=== PATIENT | male | born 1985 | race Caucasian/White ===

== ENCOUNTER 2019-10-09 10:48 | Emergency (ER) | payer OTHER, SELFPAY ==
[2019-10-09 10:49] VITALS: BP 152/92; PULSE 73; RESP 16; TEMP 36.1; O2SAT 98; BMI 32.9
--- NOTE | 2019-10-09 11:08 | RAD_ITS ---
STUDY: X-RAY - RIGHT KNEE REASON FOR EXAM: Male, 34 years old. INJURY LAST NIGHT- BENT DOWN AND TWISTED- FELT A POP AND DIFFICULTY WEIGHT BEARING, HX MENISCUS AND ACL REPAIR IN PAST TECHNIQUE: 4 view(s) of the knee. COMPARISON: None. FINDINGS: There is evidence of prior anterior cruciate ligament repair with postoperative changes. Normal visualized distal femur. Normal visualized proximal tibia and fibula. Normal proximal tibiofibular articulation. Normal medial femorotibial compartment. Normal lateral femorotibial compartment. Normal patellofemoral articulation. Small joint effusion. RAD/Knee 4 or More Views IMPRESSION: Small joint effusion. Evidence of prior anterior cruciate ligament repair. Electronically Signed: Roland Resendiz, at 12:17 EST , Service support ,
--- NOTE | 2019-10-09 11:19 | ED.DCSUM_ITS ---
History of Present Illness Chief Complaint: Lower Extremity Injury Detail of Chief Complaint: Right knee pain Informant: Patient Onset: Yesterday Current Severity: Moderate Maximum Severity: Moderate Narrative: Patient presents with pain to the medial portion of the right knee. He has a history of ACL meniscus repair when he was in high school. Last evening he was at a muslim event and doing lunges. He states his right knee was flexed and weight was coming down onto his right knee when it buckled and folded medially. He now has medial right knee pain. He is using crutches to get around. He did take Tylenol this morning. Patient is currently active in the in between stations. He called the nurse this morning who told him to go to urgent care. Urgent care did not have any ability to do imaging and he was sent to the hospital. - Past Medical History (1) H/O right knee surgery Status: Resolved Past Medical History - Allergies and Home Meds Allergies/Adverse Reactions: Allergies No Known Allergies Allergy (Verified 10/09/19 10:52) Prior records reviewed: Yes Lives: Spouse/ Significant Other Review of Systems General: Denies: Chills, Fever Eyes: Denies: Visual changes - bilaterally ENT: Denies: Bilateral ear pain Cardiovascular: Denies: Chest pain Respiratory: Denies: Dyspnea, Cough Gastrointestinal: Denies: Abdominal pain, Nausea, Vomiting, Diarrhea Musculoskeletal: Reports: Extremity Pain Skin: Denies: Rash Neurological: Reports: Parasthesia Hematologic: Denies: Easy bruising Allergy: Denies: Uticaria Physical Exam Vital Signs/Narrative: Vital Signs Temp Pulse Resp BP Pulse Ox 10/09/19 10:49 97 F L 73 16 152/92 H 98 Inital Vital Signs reviewed: Yes General: Well nourished, Well developed Head: Normocephalic ENT: Moist mucous membranes Neck: Supple Cardiovascular: Regular rate, Regular rhythm Respiratory: No distress, CTA bilaterally Abdomen: Soft, Nontender Extremities: - - Tenderness palpation along the medial right knee along the MCL. He does have tenderness with valgus stress on the knee. Skin: Normal color Neurological: Alert, Oriented x3, - - Patient is able to hold his right leg up off the bed. He has minimal range of motion at right knee secondary to pain. Diagnostic/Tx/Re-eval Impressions Knee X-Ray 10/09/19 11:08 IMPRESSION: Small joint effusion. Evidence of prior anterior cruciate ligament repair. Electronically Signed: Roland Resendiz, at 12:17 EST , Service support , 10/09/19 11:08 Knee 4 or More Views [RAD] Stat - Medical Decision Making She was given oxycodone here for pain. Test results are discussed with he and at bedside. Tremayne wrap is applied to the right knee. He is already using crutches. Prescription for Percocet will be sent to the pharmacy for him. He has been in contact with his [facility] oversight and they are sending a referral to [facility]. I will contact Dr. Gonzales, on-call for the group to notify him that the patient will need close follow-up. ED Disposition - Plan for ED Patient: Disposition: Home or Assisted Living Diagnosis: Right knee sprain Instructions: Knee Sprain Prescriptions: Oxycodone HCl/Acetaminophen [Percocet 5/325] 1 tablet PO Q6H PRN PRN 3 Days #12 tablet PRN Reason: Pain Transmission Status: Sent to [id number] Referrals: Fabrizio Gonzales MD [STAFF PHYSICIAN] - As soon as possible
[2019-10-09] MEDS: oxyCODONE 5 MG Tablet 10 MG PO (11:37)
== END 2019-10-09 12:54 | disposition home or self-care (01) ==
PROVIDERS: Emergency Provider Emergency Medicine
DX: S83.91XA Sprain of unspecified site of right knee, initial encounter (principal); X58.XXXA Exposure to other specified factors, initial encounter; Y93.9 Activity, unspecified; Y92.9 Unspecified place or not applicable
CPT/HCPCS: 73564; 99282